=== PATIENT | male | born 1960 | race Caucasian/White ===

== ENCOUNTER 2021-07-12 15:42 | Emergency (ER) | payer BC ==
[~2021-07-12] VITALS: Ht 185.4 cm; Wt 121.1 kg
[2021-07-12 15:42] VITALS: BP_SYST 155
[2021-07-12 17:29] LABS: BASOPHILS # (AUTO) 0.2 K/uL (0.0-0.2); BASOPHILS % (AUTO) 2.2 % (0.0-2.0); EOSINOPHILS # (AUTO) 0.1 K/uL (0.0-0.4); EOSINOPHILS % (AUTO) 1.4 % (0.0-4.0); HEMATOCRIT 44.4 % (36-54); HEMOGLOBIN 15.4 g/dL (14.0-18.0); LYMPHOCYTES # (AUTO) 1.9 K/uL (1.0-5.5); LYMPHOCYTES % (AUTO) 27.3 % (20.5-51.5); MEAN CORPUSCULAR HEMOGLOBIN 32 pg (27-31); MEAN CORPUSCULAR HGB CONC 35 % (32-36); MEAN CORPUSCULAR VOLUME 94 fL (79.0-98.0); MONOCYTES # (AUTO) 0.8 K/uL (0.0-1.0); MONOCYTES % (AUTO) 10.6 % (1.7-9.3); NEUTROPHILS # (AUTO) 4.1 K/uL (1.8-7.7); NEUTROPHILS % (AUTO) 58.5 % (40.0-70.0); PLATELET COUNT (AUTO) 248 K/uL (130-430); RED BLOOD CELL COUNT(AUTO) 4.74 MIL/uL (4.2-6.2); RED CELL DISTRIBUTION WIDTH 13.3 % (9.0-15.0); WHITE BLOOD COUNT (AUTO) 7.1 K/uL (4.8-10.8)
[2021-07-12 17:51] LABS: CALCIUM 9.4 mg/dL (8.4-11.0); CREATININE 1.07 mg/dL (0.55-1.30); POTASSIUM 4.4 mmol/L (3.5-5.1)
[2021-07-12 18:06] LABS: ALBUMIN 3.9 g/dL (3.4-4.8); THYROID STIMULATING HORMONE 1.6 uIu/mL (0.36-3.74); TOTAL BILIRUBIN 0.4 mg/dL (0.0-1.0)
[2021-07-12 19:01] VITALS: BP_SYST 141
== END 2021-07-12 19:00 | disposition left against medical advice (07) ==
LOC: SED 15:42
DX: R00.2 Palpitations (principal); R07.89 Other chest pain
CPT/HCPCS: 36415; 71045; 80053; 83735; 84443; 84484; 85025; 93005; 99284

== ENCOUNTER 2024-05-30 11:10 | Emergency (ER) | payer BC ==
[~2024-05-30] VITALS: Ht 185.4 cm; Wt 128.8 kg
[2024-05-30 11:14] VITALS: BP_SYST 121; PULSE 72; RESP 16; TEMP 97.4; O2SAT 96
[2024-05-30] MEDS ORDERED: METH-776 PO (11:38)
[2024-05-30] MEDS ORDERED: TIZA-321 PO (11:38)
[2024-05-30] MEDS ORDERED: ZAN4 PO (11:48)
== END 2024-05-30 11:51 | disposition home or self-care (01) ==
LOC: SED 11:10
DX: M54.12 Radiculopathy, cervical region (principal); E78.5 Hyperlipidemia, unspecified; Z98.61 Coronary angioplasty status
CPT/HCPCS: 99283